=== PATIENT | male | born 1985 | race Caucasian/White ===

== ENCOUNTER 2018-01-28 20:09 | Emergency (ER) | payer OTHER ==
[~2018-01-28] VITALS: Ht 175.3 cm; Wt 92.5 kg
[2018-01-28 20:15] VITALS: BP 155/106
[2018-01-28] MEDS ORDERED: ASPIRIN 81 MG TAB.CHEW PO ONE (21:00)
[2018-01-28 21:08] LABS: BASO % 1 % (0-3); EOS # 0.2 x10^3/uL (0.0-0.7); EOS % 2 % (0-3); HEMATOCRIT 44.4 % (39.0-53.0); HEMOGLOBIN 15.2 g/dL (13.0-17.5); LYMPH % 38 % (24-48); MEAN CORPUSCULAR HEMOGLOBIN 30 pg (25-35); MEAN CORPUSCULAR HGB CONC 34 g/dL (31-37); MEAN CORPUSCULAR VOLUME 87 fL (79-100); MONO # 0.6 x10^3/uL (0.0-1.1); MONO % 7 % (0-9); NEUT # 4.1 x10^3uL (1.8-7.7); NEUT % 52 % (31-73); PLATELET COUNT 232 x10^3/uL (140-400); RED BLOOD COUNT 5.11 x10^6/uL (4.30-5.70); RED CELL DISTRIBUTION WIDTH 12.8 % (11.5-14.5); WHITE BLOOD COUNT 7.9 x10^3/uL (4.0-11.0)
[2018-01-28] MEDS ORDERED: IOHEXOL 300 MG/ML 75 ML VIAL. IV ONE (21:15)
[2018-01-28 21:20] LABS: ALBUMIN 4.2 g/dL (3.4-5.0); ALBUMIN/GLOBULIN RATIO 1.2 (1.0-1.7); CALCIUM 8.7 mg/dL (8.5-10.1); CREATININE 1.2 mg/dL (0.7-1.3); GFR 69.3; POTASSIUM 3.6 mmol/L (3.5-5.1); TOTAL BILIRUBIN 0.8 mg/dL (0.2-1.0); TOTAL PROTEIN 7.8 g/dL (6.4-8.2)
[2018-01-28] MEDS ORDERED: KETOROLAC 30 MG/ML VIAL. IV ONE (21:30)
--- NOTE | 2018-01-28 22:28 | RAD ---
Exam performed: One view chest. Indication: Hx htn, cp radiating to back, pleurisy. Date of Service: 01/28/2018 9:13 PM Comparison: None available. Single AP upright portable view chest findings: Cardiomediastinal silhouette is within limits of normal. No acute infiltrates, effusion or pneumothorax is detected. The bony structures are normal. Impression: No acute cardiopulmonary process is detected. End impression Exam performed: CT scan of the chest with contrast Indication: Chest pain radiating to the back, history of hypertension. Date of Service: 01/28/2018. Comparison: None available Technique: Contiguous helical acquisitions are obtained through the chest during intravenous administration of 75 cc of Omnipaque 300. In addition sagital and coronal reformatted images are obtained and reviewed. CT chest findings: The structures at the thoracic inlet including both lobes of the thyroid gland appear normal. The neck and intrathoracic great vessels appear grossly normal in caliber. No large filling defects to suggest pulmonary embolism noted. Aorta is normal in caliber. Incidental Retroesophageal course of the right subclavian artery There is no dominant mediastinal , axillary or hilar lymph node enlargement noted. The central airway is patent without endoluminal lesions. Interrogation of lungs demonstrates no definite infiltrates or nodules. There is a calcified nodule in the right upper lobe. There is no pleural effusion or pneumothorax. Limited evaluation of upper abdominal structures is unremarkable. Impression: 1. Negative CT scan of the chest. No evidence of pulmonary embolism, aortic aneurysm or dissection noted. PQRS Compliance Statement: One or more of the following individualized dose reduction techniques were utilized for this examination: 1. Automated exposure control 2. Adjustment of the mA and/or kV according to patient size 3. Use of iterative reconstruction technique Electronically signed by: Liana Vivar MD (01/28/2018 10:24 PM) [facility]
--- NOTE | 2018-01-28 23:07 | PHYS DOC ---
Adult General Chief Complaint Chief Complaint: CHEST PAIN HPI HPI 32-year-old male with history of hypertension compliant with his medication is with a family history of coronary artery disease with his father having an ME in his 50s. He now presents the emergency department complaining of pleuritic chest pain which is worse with deep inspiration and movement. He has no productive cough or fever. The pain radiates to his back. No recent trauma. No history of hypercoagulability or blood clots. Patient has never had a spontaneous pneumothorax. No family history of coronary artery pulmonary or aortic disease at a young age. Review of Systems Review of Systems Constitutional: Denies fever or chills [] Eyes: Denies change in visual acuity, redness, or eye pain [] HENT: Denies nasal congestion or sore throat [] Respiratory: Denies cough or shortness of breath [] Cardiovascular: No additional information not addressed in HPI [] GI: Denies abdominal pain, nausea, vomiting, bloody stools or diarrhea [] : Denies dysuria or hematuria [] Musculoskeletal: Denies back pain or joint pain [] Integument: Denies rash or skin lesions [] Neurologic: Denies headache, focal weakness or sensory changes [] Endocrine: Denies polyuria or polydipsia [] All other systems were reviewed and found to be within normal limits, except as documented in this note. Current Medications Current Medications Current Medications Medications (Trade) Dose Ordered Sig/Sheila Start Time Stop Time Status Last Admin Dose Admin Aspirin (Children'S Aspirin) 324 mg 1X ONCE 01/28/18 21:00 01/28/18 21:01 DC 01/28/18 21:22 324 MG Iohexol (Omnipaque 300 Mg/ml) 75 ml 1X ONCE 01/28/18 21:15 01/28/18 21:17 DC 01/28/18 21:46 75 ML Ketorolac Tromethamine (Toradol) 30 mg 1X ONCE 01/28/18 21:30 01/28/18 21:31 DC 01/28/18 21:30 30 MG Allergies Allergies Allergies Coded Allergies Type Severity Reaction Last Updated Verified No Known Drug Allergies 01/28/18 No Physical Exam Physical Exam Constitutional: Well developed, well nourished, no acute distress, non-toxic appearance. [] HENT: Normocephalic, atraumatic, bilateral external ears normal, oropharynx moist, no oral exudates, nose normal. [] Eyes: PERRLA, EOMI, conjunctiva normal, no discharge. [] Neck: Normal range of motion, no tenderness, supple, no stridor. [] Cardiovascular:Heart rate regular rhythm, no murmur [] Lungs & Thorax: Bilateral breath sounds clear to auscultation [] Abdomen: Bowel sounds normal, soft, no tenderness, no masses, no pulsatile masses. [] Skin: Warm, dry, no erythema, no rash. [] Back: No tenderness, no CVA tenderness. [] Extremities: No tenderness, no cyanosis, no clubbing, ROM intact, no edema. [] Neurologic: Alert and oriented X 3, normal motor function, normal sensory function, no focal deficits noted. [] Psychologic: Affect normal, judgement normal, mood normal. [] Current Patient Data Lab Results Laboratory Tests Test 01/28/18 20:45 White Blood Count 7.9 x10^3/uL (4.0-11.0) Red Blood Count 5.11 x10^6/uL (4.30-5.70) Hemoglobin 15.2 g/dL (13.0-17.5) Hematocrit 44.4 % (39.0-53.0) Mean Corpuscular Volume 87 fL (79-100) Mean Corpuscular Hemoglobin 30 pg (25-35) Mean Corpuscular Hemoglobin Concent 34 g/dL (31-37) Red Cell Distribution Width 12.8 % (11.5-14.5) Platelet Count 232 x10^3/uL (140-400) Neutrophils (%) (Auto) 52 % (31-73) Lymphocytes (%) (Auto) 38 % (24-48) Monocytes (%) (Auto) 7 % (0-9) Eosinophils (%) (Auto) 2 % (0-3) Basophils (%) (Auto) 1 % (0-3) Neutrophils # (Auto) 4.1 x10^3uL (1.8-7.7) Lymphocytes # (Auto) 3.0 x10^3/uL (1.0-4.8) Monocytes # (Auto) 0.6 x10^3/uL (0.0-1.1) Eosinophils # (Auto) 0.2 x10^3/uL (0.0-0.7) Basophils # (Auto) 0.0 x10^3/uL (0.0-0.2) Sodium Level 143 mmol/L (136-145) Potassium Level 3.6 mmol/L (3.5-5.1) Chloride Level 105 mmol/L (98-107) Carbon Dioxide Level 28 mmol/L (21-32) Anion Gap 10 (6-14) Blood Urea Nitrogen 13 mg/dL (8-26) Creatinine 1.2 mg/dL (0.7-1.3) Estimated GFR (Cockcroft-Gault) 69.3 BUN/Creatinine Ratio 11 (6-20) Glucose Level 122 mg/dL (70-99) H Calcium Level 8.7 mg/dL (8.5-10.1) Total Bilirubin 0.8 mg/dL (0.2-1.0) Aspartate Amino Transferase (AST) 28 U/L (15-37) Alanine Aminotransferase (ALT) 67 U/L (16-63) H Alkaline Phosphatase 93 U/L (46-116) Troponin I Quantitative < 0.017 ng/mL (0-0.055) Total Protein 7.8 g/dL (6.4-8.2) Albumin 4.2 g/dL (3.4-5.0) Albumin/Globulin Ratio 1.2 (1.0-1.7) EKG EKG EKG with normal sinus tachycardia at 101 right axis no STEMI unremarkable study interpreted by me Radiology/Procedures Radiology/Procedures Chest x-ray unremarkable no acute disease no pneumothorax or infiltrate or effusion interpreted by me[] Course & Med Decision Making Course & Med Decision Making Pertinent Labs and Imaging studies reviewed. (See chart for details) Signs and symptoms consistent with pleurisy. No clinical evidence of acute coronary syndrome. Patient with a low risk heart score. EKG and chest x-ray benign. Labs negative. CTA of the chest unremarkable as well with no PE or aortic abnormalities. Patient feels improved after aspirin and Toradol. No further workup or treatment indicated at this time. Patient agrees with outpatient follow-up with PCP and will discuss arranging outpatient stress test in the future and strict return precautions given [] Dragon Disclaimer Dragon Disclaimer This electronic medical record was generated, in whole or in part, using a voice recognition dictation system. Departure Departure: Impression: Primary Impression: Pleurisy Disposition: HOME, SELF-CARE Condition: IMPROVED Referrals: PCP,HUMPHREY (PCP) Patient Instructions: Pleurisy Additional Instructions: It appears that you've been suffering from pleurisy. Pleurisy is pain that is typically sharp and stabbing which is a result of inflammation of the lung lining. A full workup including CT angiogram of your chest was unremarkable today. Your chest x-ray and EKG was fine as well. You have no evidence of heart pain today. Given that male with hypertension and a family history of coronary artery disease in your father's sixth decade, it is appropriate follow-up with your doctor and discuss when future routine stress test will become appropriate for you. Take ibuprofen 800 mg every 6 hours and Tylenol as well if necessary. Follow-up with your doctor in 1 day and return immediately for new severe worsening symptoms BIA GALE MD January 28, 2018 23:07
--- NOTE | 2018-01-28 23:52 | EKG ---
[address] [address] Test Date: 2018-01-28 Test Time: 20:23:40 Pat Name: EDWARD SAWYER Department: Room: Gender: M Child Nurse: PABLO : 1985 Requested By: BIA GALE Order Number: [id number] Reading MD: Measurements Intervals [place] Rate: 101 P: 70 HI: 134 QRS: 95 QRSD: 92 T: 28 QT: 314 QTc: 408 Interpretive Statements SINUS TACHYCARDIA RIGHTWARD AXIS NO SPECIFIC ECG ABNORMALITIES RI6.01 No previous ECG available for comparison
== END 2018-01-28 23:21 | disposition home or self-care (01) ==
LOC: ER 20:09
DX: R09.1 Pleurisy (principal); I10 Essential (primary) hypertension
CPT/HCPCS: 36415; 71045; 71275; 80053; 84484; 85025; 93005; 96374; 99285; J1885; Q9967